=== PATIENT | female | born 1930 | race African-American/Black ===

== ENCOUNTER 2018-08-19 10:54 | Emergency (ER) | payer MEDICARE, MEDICAID ==
--- NOTE | 2018-08-19 11:56 | CT ---
CT HEAD WITHOUT CONTRAST: Date: 08/19/18 Multiple axial tomograms obtained through the head without IV enhancement. INDICATION: Mental status change. No comparison. FINDINGS: Ventricles have normal size and position. There are mild chronic ischemic white matter changes. Basal ganglia calcifications. Calcifications along the tentorium. No evidence of acute mass, hemorrhage, or infarct. Sinuses and mastoids are clear. IMPRESSION: No acute findings. POS: [facility]
[2018-08-19 11:58] LABS: Bilirubin Negative (Negative); Blood, Urine Negative (Negative); Glucose, Urine (Dipstick) Negative (Negative); Leukocyte Negative (Negative); Nitrite Negative (Negative); Protein, Urine (Dipstick) 30 mg/dL (Neg-Trace); Specific Gravity, Urine 1.025 (1.005-1.030)
[2018-08-19 11:59] LABS: Clarity CLEAR (Clear)
[2018-08-19 12:06] LABS: Bacteria/HPF None Seen HPF (None Seen); Hyaline Casts/LPF NONE SEEN LPF (0-3 Hyaline); RBC/HPF 0-3 HPF (0-3); Squamous Epithelial 0-3 HPF (0-3); WBC/HPF None Seen HPF (0-3)
[2018-08-19 12:36] LABS: #Eosinphils 0.1 thou/uL (0.0-0.7); #Lymphocytes 0.9 thou/uL (1.20-3.40); #Monocytes 0.4 thou/uL (0.11-0.59); #Neutrophils 5.1 thou/uL (1.40-6.50); %Basophils 0.5 % (0.0-1.0); %Eosinophils 0.8 % (0.0-10.0); %Lymphocytes 13.9 % (21.0-51.0); %Monocytes 6.2 % (0.0-10.0); %Neutrophils 78.6 % (42.0-75.0); Hemoglobin 13.5 g/dL (12.0-16.0); Mean Corpuscular HGB CONC 30.7 g/dL (32.0-36.0); Mean Corpuscular Hemoglobin 30.1 pg (27.0-31.0); Mean Corpuscular Volume 98.2 fL (78.0-98.0); Mean Platelet Volume 8.3 fL (7.4-10.4); Platelet Count 210 thou/uL (130-400); RBC Distribution Width 13.6 % (11.5-14.5); Red Blood Cell (RBC) Count 4.48 mill/uL (4.20-5.40); White Blood Cell (WBC) Count 6.5 thou/uL (4.8-10.8)
[2018-08-19 12:47] LABS: ALT (SGPT) Less than 7 U/L (8-55); AST (SGOT) 22 U/L (5-34); Alkaline Phosphatase 78 U/L (40-150); Anion Gap 26 mmol/L (10-20); BUN (Urea Nitrogen) 22 mg/dL (9.8-20.1); Bilirubin, Total 1.3 mg/dL (0.2-1.2); Calc. Creatinine Clearance 0 mL/min (70-130); Calcium 9.5 mg/dL (7.8-10.44); Carbon Dioxide 18 mmol/L (23-31); Chloride 104 mmol/L (98-107); Estimated GFR-MDRD 51; Globulin 3.3 g/dL (2.4-3.5); Glucose 92 mg/dL (83-110); Potassium 4.9 mmol/L (3.5-5.1); Protein, Total 7.3 g/dL (6.0-8.3); Sodium 143 mmol/L (136-145)
== END 2018-08-19 13:52 | disposition home or self-care (01) ==
LOC: ERS 10:54
DX: E86.0 Dehydration (principal); R53.1 Weakness; F03.90 Unspecified dementia, unspecified severity, without behavioral disturbance, psychotic disturbance, mood disturbance, and anxiety; I12.9 Hypertensive chronic kidney disease with stage 1 through stage 4 chronic kidney disease, or unspecified chronic kidney disease; N18.3 Chronic kidney disease, stage 3 (moderate); J45.909 Unspecified asthma, uncomplicated
CPT/HCPCS: 36415; 51701; 70450; 80053; 81003; 81015; 84443; 84484; 85025; 93005; 96360; A4353